=== PATIENT | male | born 1970 | race Caucasian/White ===

== ENCOUNTER 2016-10-17 14:02 | Emergency (ER) | payer MEDICARE, MEDICAID ==
[2015-05-18 08:56] VITALS: BMI 40.3
[~2016-10-17 14:02] MED LIST: ASCORBIC ACID500 MG PO; BACTRIM DS TABL1 TAB PO; BUSPAR10 MG PO; DILANTIN100 MG PO; ELIQUIS2.5 MG PO; KLOR-CON 1010 MEQ PO; LASIX20 MG PO; LIPITOR40 MG PO; NEURONTIN 300300 MG PO; PAXIL20 MG PO; SEROQUEL100 MG PO; ZYLOPRIM100 MG PO
[2016-10-17 15:24] LABS: BASOPHILS 0.1 % (0.0-2.0); EOSINOPHILS 1.3 % (0-7); HEMATOCRIT 45.4 % (42.0-54.0); IMMATURE GRANULOCYTES 0.3 % (0-5); LYMPHOCYTES 17.7 % (15-50); MCH 24.1 pg (26.0-34.0); MCHC 30.8 g/dL (31.0-37.0); MEAN PLATELET VOLUME 9.8 fL (7.4-10.4); MONOCYTES 8.8 % (2-11); NEUTROPHILS 71.8 % (40-80); PLATELET COUNT 376 10x3/uL (130-400); RBC 5.82 10x6/uL (4.20-6.10); RDW 18.5 % (11.5-14.5); WBC 14.2 10x3/uL (4.8-10.8)
[2016-10-17 15:55] LABS: ALBUMIN 3.6 g/dL (3.4-5.0); ALKALINE PHOSPHATASE 223 U/L (46-116); ALT (SGPT) 33 U/L (10-68); CALC OSMOLALITY 277 mosm/kg (275-300); CALCIUM 8.5 mg/dL (8.5-10.1); CARBON DIOXIDE 25.3 mmol/L (21.0-32.0); CHLORIDE - SERUM 101 mmol/L (98-107); CREATININE - SERUM 0.7 mg/dL (0.6-1.3); GLUCOSE 95 mg/dL (74-106); PROTEIN - SERUM 7.6 g/dL (6.4-8.2); SODIUM 139 mmol/L (136-145); UREA NITROGEN 12 mg/dL (7-18); eGFR NON AFRICAN AMERICAN > 90 mL/min (90-120)
[2016-10-17 18:02] LABS: INR 0.96 (0.85-1.17); PROTIME 12.7 SECONDS (11.6-15.0)
== END 2016-10-17 18:48 | disposition home or self-care (01) ==
LOC: D.ER 14:02
PROVIDERS: Family Medicine; Physician Assistant Medical
DX: I87.2 Venous insufficiency (chronic) (peripheral) (principal); I83.028 Varicose veins of left lower extremity with ulcer other part of lower leg; F17.200 Nicotine dependence, unspecified, uncomplicated; E11.9 Type 2 diabetes mellitus without complications

== ENCOUNTER → 2018-02-26 07:58 | Outpatient (CLI) | payer MEDICARE, MEDICAID ==
[2015-05-18 08:56] VITALS: BMI 40.3
== END | disposition home or self-care (01) ==
LOC: D.CT 07:58
DX: R93.2 Abnormal findings on diagnostic imaging of liver and biliary tract (principal)

== ENCOUNTER → 2018-06-17 11:09 | Outpatient (CLI) | payer MEDICARE, MEDICAID ==
[2015-05-18 08:56] VITALS: BMI 40.3
[2018-06-17 12:45] LABS: BASOPHILS 0.1 % (0-2); EOSINOPHILS 0.8 % (0-7); HEMATOCRIT 47.9 % (42.0-54.0); IMMATURE GRANULOCYTES 0.2 % (0-5); INR 0.98 (0.85-1.17); MCH 23.2 pg (26.0-34.0); MCHC 31.3 g/dL (31.0-37.0); MEAN PLATELET VOLUME 9.5 fL (7.4-10.4); MONOCYTES 11.5 % (2-11); NEUTROPHILS 55.4 % (40-80); PLATELET COUNT 357 10x3/uL (130-400); PROTIME 12.6 SECONDS (11.6-15.0); RBC 6.47 10x6/uL (4.20-6.10); RDW 20.8 % (11.5-14.5); WBC 10.2 10x3/uL (4.8-10.8)
[2018-06-17 13:03] LABS: ALBUMIN 3.6 g/dL (3.4-5.0); ALKALINE PHOSPHATASE 259 U/L (46-116); ALT (SGPT) 33 U/L (10-68); BILIRUBIN - DIRECT 0.11 mg/dL (0.00-0.30); BILIRUBIN - INDIRECT 0.19 mg/dL (0.00-1.00); CALC OSMOLALITY 269 mosm/kg (275-300); CALCIUM 8.5 mg/dL (8.5-10.1); CARBON DIOXIDE 30.1 mmol/L (21.0-32.0); CHLORIDE - SERUM 99 mmol/L (98-107); CHOL - HDL RATIO 3.4 ratio (2.3-4.9); CHOLESTEROL, TOTAL 134 mg/dL (0-200); CREATININE - SERUM 0.7 mg/dL (0.6-1.3); FERRITIN 8 ng/mL (3-244); GAMMA GT 163 U/L (5-85); GLUCOSE 83 mg/dL (74-106); HDL CHOLESTEROL 39 mg/dL (32-96); LDL CHOLESTEROL 63 mg/dL (0-100); LDL-HDL RATIO 1.6 ratio (1.5-3.5); POTASSIUM - SERUM 3.6 mmol/L (3.5-5.1); PROTEIN - SERUM 8.6 g/dL (6.4-8.2); SODIUM 136 mmol/L (136-145); TRIGLYCERIDE 161 mg/dL (30-200); UREA NITROGEN 10 mg/dL (7-18); eGFR NON AFRICAN AMERICAN > 90 mL/min (90-120)
[2018-06-17 13:22] LABS: % SATURATION 3 % (15-55); IRON 16 ug/dl (35-150); TOTAL IRON BIND CAPACITY 412 ug/dl (260-445); UNSAT IRON BIND CAPACITY 396 ug/dl (150-375)
[2018-06-18 06:14] LABS: HAPTOGLOBIN 178 mg/dL (34-200)
[2018-06-18 07:28] LABS: HEPATITIS C ANTIBODY <0.1 (0.0-0.9)
[2018-06-18 10:20] LABS: ALPHA FETOPROTEIN -(TUMOR MRK) 1.2 ng/mL (0.0-8.3)
[2018-06-18 12:17] LABS: ANA REFLEX - DIRECT Negative (Negative)
[2018-06-19 14:22] LABS: SMOOTH MUSCLE ABS (ACTIN) 18 Units (0-19)
[2018-06-19 14:22] LABS: MITOCHONDRIAL ANTIBODY 41.2 Units (0.0-20.0)
== END | disposition home or self-care (01) ==
LOC: D.LAB 11:09
PROVIDERS: Internal Medicine Gastroenterology
DX: R74.8 Abnormal levels of other serum enzymes (principal); R56.9 Unspecified convulsions; Z51.81 Encounter for therapeutic drug level monitoring; Z79.01 Long term (current) use of anticoagulants; R94.5 Abnormal results of liver function studies

== ENCOUNTER 2018-06-30 06:54 | Outpatient (CLI) | payer MEDICARE, MEDICAID ==
[2018-06-30] VITALS (13 sets, daily range): BP systolic 98–144; BP diastolic 53–76; Ht 162.6 cm; Wt 95.0 kg
[~2018-06-30] VITALS: Ht 162.6 cm; Wt 95.0 kg
[2018-06-30 07:12] LABS: BASOPHILS 0.1 % (0-2); EOSINOPHILS 1.2 % (0-7); HEMOGLOBIN 14.5 g/dL (13.5-17.5); IMMATURE GRANULOCYTES 0.2 % (0-5); LYMPHOCYTES 28.4 % (15-50); MCH 23.2 pg (26.0-34.0); MCHC 30.9 g/dL (31.0-37.0); MCV 75.1 fL (80.0-100.0); MEAN PLATELET VOLUME 9.1 fL (7.4-10.4); MONOCYTES 11.3 % (2-11); NEUTROPHILS 58.8 % (40-80); PLATELET COUNT 353 10x3/uL (130-400); RBC 6.26 10x6/uL (4.20-6.10); RDW 20.4 % (11.5-14.5); WBC 11.5 10x3/uL (4.8-10.8)
[2018-06-30 07:21] LABS: CALC OSMOLALITY 274 mosm/kg (275-300); CALCIUM 9.1 mg/dL (8.5-10.1); CARBON DIOXIDE 32.3 mmol/L (21.0-32.0); CHLORIDE - SERUM 103 mmol/L (98-107); CREATININE - SERUM 0.7 mg/dL (0.6-1.3); GLUCOSE 82 mg/dL (74-106); POTASSIUM - SERUM 4.4 mmol/L (3.5-5.1); SODIUM 139 mmol/L (136-145); UREA NITROGEN 7 mg/dL (7-18); eGFR NON AFRICAN AMERICAN > 90 mL/min (90-120)
[2018-06-30 07:22] LABS: INR 0.9 (0.85-1.17); PROTIME 11.8 SECONDS (11.6-15.0)
[2018-06-30] MEDS ORDERED: GLUCOPHAGE500 MG PO (07:47)
[2018-06-30] MEDS ORDERED: GLUCOTROL 5 MG T5 MG PO (07:47)
[2018-07-01 05:46] VITALS: BP 115/66
[2018-07-01 08:51] VITALS: BP 107/65
[2018-07-01] MEDS ORDERED: ELIQUIS5 MG PO (09:52)
[2018-07-01] MEDS ORDERED: ELIQUIS2.5 MG PO (09:54)
== END 2018-07-01 11:40 | disposition home or self-care (01) ==
LOC: D.SP 06:54 → D.MS 06:54 → D.CT 10:00 → D.MS 11:05 → D.SDCHOLD 12:17 → D.MS 12:19 → D.SP 07-01 11:40
PROVIDERS: Specialist
DX: R94.5 Abnormal results of liver function studies (principal); Z79.01 Long term (current) use of anticoagulants; Z79.899 Other long term (current) drug therapy; Z01.812 Encounter for preprocedural laboratory examination

== ENCOUNTER → 2018-10-01 09:07 | Outpatient (CLI) | payer MEDICARE, MEDICAID ==
[2018-06-30 11:33] VITALS: BMI 35.9
[~2018-10-01 09:07] MED LIST changes: +ELIQUIS5 MG PO; +GLUCOPHAGE500 MG PO; +GLUCOTROL 5 MG T5 MG PO
[2018-10-01 09:55] LABS: ALBUMIN 3.3 g/dL (3.4-5.0); BILIRUBIN - DIRECT 0.12 mg/dL (0.00-0.30); BILIRUBIN - INDIRECT 0.13 mg/dL (0.00-1.00); BILIRUBIN - TOTAL 0.25 mg/dL (0.2-1.3); PROTEIN - SERUM 8.3 g/dL (6.4-8.2)
== END | disposition home or self-care (01) ==
LOC: D.US 09:07
PROVIDERS: Internal Medicine Gastroenterology
DX: R79.89 Other specified abnormal findings of blood chemistry (principal)

== ENCOUNTER → 2019-03-19 08:15 | Outpatient (CLI) | payer OTHER, MEDICAID ==
[2018-06-30 11:33] VITALS: BMI 35.9
[2019-03-19 09:20] LABS: ALBUMIN 3.4 g/dL (3.4-5.0); BILIRUBIN - DIRECT 0.06 mg/dL (0.00-0.30); BILIRUBIN - INDIRECT 0.16 mg/dL (0.00-1.00); BILIRUBIN - TOTAL 0.22 mg/dL (0.2-1.3); PROTEIN - SERUM 8.3 g/dL (6.4-8.2)
== END | disposition home or self-care (01) ==
LOC: D.LAB 03-08 08:15 → D.US 03-08 11:00 → D.LAB 03-09 08:00 → D.US 03-09 09:00 → D.LAB 08:00
PROVIDERS: ATTEND Internal Medicine Gastroenterology
DX: K76.0 Fatty (change of) liver, not elsewhere classified (principal); R74.8 Abnormal levels of other serum enzymes

== ENCOUNTER → 2019-09-10 08:49 | Outpatient (CLI) | payer OTHER, MEDICAID ==
[2018-06-30 11:33] VITALS: BMI 35.9
[2019-09-10 09:21] LABS: ALBUMIN 3.5 g/dL (3.4-5.0); BILIRUBIN - DIRECT 0.09 mg/dL (0.00-0.30); BILIRUBIN - INDIRECT 0.2 mg/dL (0.00-1.00); BILIRUBIN - TOTAL 0.29 mg/dL (0.2-1.3)
== END | disposition home or self-care (01) ==
LOC: D.LAB 08:49 → D.US 09:30
PROVIDERS: ATTEND Internal Medicine Gastroenterology
DX: K76.0 Fatty (change of) liver, not elsewhere classified (principal); K74.3 Primary biliary cirrhosis

== ENCOUNTER 2020-02-29 10:21 | Outpatient (CLI) | payer OTHER, MEDICAID ==
[~2020-02-29] VITALS: Ht 162.6 cm; Wt 88.2 kg
[2020-02-29 10:36] VITALS: BP 109/63; Ht 162.6 cm; Wt 88.2 kg
--- NOTE | 2020-02-29 12:05 | NUR ---
1200 PT STATES HE FEELS FINE WHILE SITTING ON SIDE OF BED AND ASKING TO BE DISCHARGED HOME. DENIES DIZZINESS. HAS CONSUMED 3 SMALL CANS OF REGULAR SODA.
== END 2020-02-29 12:05 | disposition home or self-care (01) ==
LOC: D.OPS 10:21
PROVIDERS: ATTEND Internal Medicine Hematology & Oncology
DX: D75.1 Secondary polycythemia (principal)

== ENCOUNTER 2020-04-03 11:06 | Outpatient (CLI) | payer OTHER, MEDICAID ==
[~2020-04-03] VITALS: Ht 162.6 cm; Wt 88.3 kg
[2020-04-03 11:54] VITALS: BP 123/74; Ht 162.6 cm; Wt 88.3 kg
--- NOTE | 2020-04-03 12:08 | NUR ---
1140-LITA FROM LAB HERE FOR PHLEBOTOMY.
--- NOTE | 2020-04-03 12:35 | NUR ---
1230 PROCEDURE COMPLETED, 450CC REMOVED. REG DIET SERVED, 2 LAYLA PROVIDED. PT. DENIES PROBLEMS. SITTING ON SIDE OF BED. POST V.S. 97,9 HR 82 RR 18 PULSE OX 90% PB 128/66. PT STATES HE DOES NOT WANT SCAT CALLED, HE HAS SOMEONE HE IS GOING TO CATCH A RIDE WITH.
--- NOTE | 2020-04-03 14:41 | NUR ---
1145-SMOKING CESSATION AND SUICIDE PREVENTION INFORMATION AND HOTLINE OFFERRED AND DECLINED.
== END 2020-04-03 12:40 | disposition home or self-care (01) ==
LOC: D.OPS 11:06
PROVIDERS: ATTEND Internal Medicine Hematology & Oncology
DX: D75.1 Secondary polycythemia (principal)

== ENCOUNTER 2020-05-17 12:14 | Outpatient (CLI) | payer OTHER, MEDICAID ==
[2020-04-03 11:54] VITALS: BMI 33.4
== END 2020-05-17 13:43 | disposition home or self-care (01) ==
LOC: D.OPS 12:14
PROVIDERS: ATTEND Internal Medicine Hematology & Oncology
DX: D75.1 Secondary polycythemia (principal); I95.9 Hypotension, unspecified

== ENCOUNTER 2020-06-07 11:33 | Outpatient (CLI) | payer OTHER, MEDICAID ==
[2020-04-03 11:54] VITALS: BMI 33.4
--- NOTE | 2020-06-07 12:42 | NUR ---
PHLEBOTOMY TOLERATED WELL VSS. DISCHARGE PAPERWORK SIGNED AND PT AMBULATED OUT.
== END 2020-06-07 12:48 | disposition home or self-care (01) ==
LOC: D.OPS 11:33
PROVIDERS: ATTEND Internal Medicine Hematology & Oncology
DX: D75.1 Secondary polycythemia (principal); I95.9 Hypotension, unspecified

== ENCOUNTER 2020-06-21 10:38 | Outpatient (CLI) | payer OTHER, MEDICAID ==
[2020-04-03 11:54] VITALS: BMI 33.4
== END 2020-06-21 12:10 | disposition home or self-care (01) ==
LOC: D.OPS 10:38
PROVIDERS: ATTEND Internal Medicine Hematology & Oncology
DX: D75.1 Secondary polycythemia (principal)